=== PATIENT | female | born 1970 | race Caucasian/White ===

== ENCOUNTER → 2020-01-20 09:58 | Outpatient (CLI) | payer MEDICAID, SELFPAY ==
[2018-11-27 09:50] VITALS: BMI 25.9
--- NOTE | 2020-01-20 10:05 | EKG12_ITS ---
Test Reason : ROUTINE Blood Pressure : / mmHG Vent. Rate : 062 BPM Atrial Rate : 062 BPM P-R Int : 124 ms QRS Dur : 078 ms QT Int : 404 ms P-R-T Axes : 012 033 028 degrees QTc Int : 410 ms Normal sinus rhythm Low voltage QRS Borderline ECG Confirmed by MICAH SCOTT, RANDI ([id number]), editorial writer JOHNNY BROUSSARD ([id number]) on 01/21/2020 11:15:35 AM Referred By: Gail Weller Confirmed By:RANDI OBRIEN MD
--- NOTE | 2020-01-20 10:11 | RAD_ITS ---
STUDY: X-RAY CHEST REASON FOR EXAM: Female, 49 years old. SOB especially with exertion, mid chest discomfort, family hx of CHF and heart attacks TECHNIQUE: Frontal and lateral views of the chest. COMPARISON: None. FINDINGS: The lungs are clear and expanded. There is no demonstrated pleural abnormality. Normal size heart. Normal mediastinum and andreia. Normal visualized pulmonary arteries. Normal visualized aortic arch and descending thoracic aorta. Normal visualized thoracic spine. Normal visualized ribs, clavicles, and shoulders. There is no demonstrated abnormality of the visualized soft tissue structures of the upper abdomen. RAD/Chest PA and Lateral IMPRESSION: Normal x-ray examination of the chest. Electronically Signed: Myles Conn MD at 17:52 EDT Tel , Service support ,
== END ==
PROVIDERS: PCP Nurse Practitioner Family; Referring Provider Nurse Practitioner Family; Visit Provider Nurse Practitioner Family
DX: R07.89 Other chest pain (principal); R06.02 Shortness of breath
CPT/HCPCS: 71046; 93005

== ENCOUNTER → 2020-02-19 13:03 | Outpatient (CLI) | payer MEDICAID, SELFPAY ==
[2018-11-27 09:50] VITALS: BMI 25.9
--- NOTE | 2020-02-19 14:16 | PN_ITS ---
Progress Note Patient was here for a stress echo. She felt that because of having leg issues she would not be able to walk on the treadmill to get her heart rate up. Also, she had poor echocardiographic windows. For these reasons a Lexiscan nuclear stress test would be a better option to evaluate for myocardial ischemia then a stress echo in this patient.
== END ==
PROVIDERS: PCP Nurse Practitioner Family; Visit Provider Nurse Practitioner Family
DX: R07.89 Other chest pain (principal); R06.02 Shortness of breath; R01.1 Cardiac murmur, unspecified

== ENCOUNTER → 2020-03-05 09:44 | Outpatient (CLI) | payer MEDICAID, SELFPAY ==
[2020-03-05 09:02] VITALS: BMI 27.6
[2020-03-05 10:29] LABS: Absolute Lymphocyte Count 1.74 X10^3/uL (0.83-4.51); Absolute Neutrophil Count 5.6 X10^3/uL (2.0-7.7); Basophil# 0.02 X10^3/uL; Basophil% 0.3 % (0-1); Eosinophil# 0.02 X10^3/uL; Eosinophils% 0.3 % (0-5); Hematocrit 44.2 % (37-47); Hemoglobin 14.3 g/dL (12.0-15.0); Lymphocyte # 1.74 X10^3/ul (4.0); Lymphocyte % 22.1 % (19-41); Mean Corp Hgb Conc 32.4 g/dL (32-36); Mean Corpuscular Hgb 30.2 pg (27.0-32.0); Mean Corpuscular Volume 93.2 fL (81-99); Mean Platelet Vol. 10.4 fl (6.2-12.0); Monocyte# 0.46 X10^3/uL; Monocyte% 5.8 % (0-10); NRBC Flagged by Analyzer 0 % (0-5); Neutrophil # 5.63 X10^3/uL (2.7-7.7); Neutrophil % 71.2 % (47-70); Platelet Count 269 K/mm3 (150-450); RBC Distribution Width CV 12.7 % (11.6-14.6); RBC Distribution Width SD 43.9 fl (35.1-43.9); Red Blood Count 4.74 M/mm3 (4.2-5.4); White Blood Count 7.9 K/mm3 (4.4-11.0)
[2020-03-05 10:52] LABS: BNP,B-Type NATRIURETIC PEPTIDE 13.8 pg/mL (0-100)
[2020-03-05 10:56] LABS: Anion Gap 7 (5-15); BUN 12 mg/dL (7-18); BUN/Creat Ratio 15.8 RATIO (10-20); Calcium,Total 8.9 mg/dL (8.5-10.1); Chloride 106 mmol/L (98-107); Creatinine, Serum 0.76 mg/dL (0.55-1.02); EST Glomerular Filtration Rate 87 mL/min (>60); Est Glom Filt Rate - Afr Amer 105 mL/min (>60); Free T3 3.3 pg/mL (2.18-3.98); Glucose 89 mg/dL (74-106); Magnesium 2.2 mg/dL (1.6-2.6); Potassium 3.9 mmol/L (3.5-5.1); Sodium Level 138 mmol/L (136-145); T4 Free Direct 1.19 ng/dL (0.76-1.46); Thyroid Stim Hormone (TSH) 2.25 uIU/mL (0.358-3.74)
== END ==
PROVIDERS: PCP Nurse Practitioner Family; Referring Provider Physician Assistant Medical; Visit Provider Physician Assistant Medical
DX: R07.9 Chest pain, unspecified (principal); R06.02 Shortness of breath; R00.2 Palpitations; I73.9 Peripheral vascular disease, unspecified
CPT/HCPCS: 36415; 80048; 83735; 83880; 84439; 84443; 84481; 85025

== ENCOUNTER 2021-05-24 07:58 | Outpatient (CLI) | payer MEDICAID, SELFPAY ==
--- NOTE | 2021-05-24 08:00 | CT_ITS ---
STUDY: CT MAXILLOFACIAL SINUSES REASON FOR EXAM: Female, 50 years old. SINUSITIS RADIATION DOSAGE (If Supplied By Facility): CTDIvol = ( 33.06 ) mGy, DLP = ( 871.04 ) mGycm TECHNIQUE: The patient was scanned in a multi detector CT scanner. High resolution axial imaging was performed without the administration of intravenous contrast material. Sagittal and coronal images were reconstructed. Individualized dose optimization techniques were used for this CT. COMPARISON: None. FINDINGS: Small benign appearing submental lymph nodes. FRONTAL SINUSES: Normal aeration, without mucosal inflammatory disease. ETHMOIDAL SINUSES: Normal aeration, without mucosal inflammatory disease. MAXILLARY SINUSES: Minimal mucosal thickening along the lateral inferior aspect of the right maxillary sinus. SPHENOIDAL SINUSES: Normal aeration, without mucosal inflammatory disease. There is patency of the bilateral maxillary infundibuli with normal uncinate processes, ethmoid bullae, and hiatus semilunaris. Normal bilateral middle turbinates. Normal bilateral inferior turbinates. Normal midline nasal septum. There is patency of the bilateral nasal airways. The visualized osseous structures are normal. The visualized bilateral orbital contents are normal. CT/Sinus/Facial Bone IMPRESSION: Minimal mucosal thickening along the lateral inferior aspect of the right maxillary sinus. Electronically Signed: Jamie Bob MD at 9:45 EST , Service support ,
== END 2021-05-24 23:59 | disposition short-term general hospital (02) ==
LOC: CT 07:58
PROVIDERS: PCP Nurse Practitioner Family; Referring Provider Otolaryngology; Visit Provider Otolaryngology
DX: J32.9 Chronic sinusitis, unspecified (principal)
CPT/HCPCS: 70486

== ENCOUNTER 2022-01-02 11:13 | Day surgery (SDC) | payer MEDICAID, SELFPAY ==
--- NOTE | 2021-12-28 09:24 | EKG12_ITS ---
Test Reason : PRE OP Blood Pressure : / mmHG Vent. Rate : 072 BPM Atrial Rate : 072 BPM P-R Int : 138 ms QRS Dur : 078 ms QT Int : 400 ms P-R-T Axes : 059 029 040 degrees QTc Int : 438 ms Normal sinus rhythm with sinus arrhythmia Low voltage QRS Borderline ECG Confirmed by MICAH SCOTT, RANDI ([id number]), brands editor JOHNNY BROUSSARD ([id number]) on 12/29/2021 9:50:51 AM Referred By: Diaz Chang Confirmed By:RANDI OBRIEN MD
[2021-12-28 10:05] LABS: Hematocrit 42.7 % (37-47); Hemoglobin 14.3 g/dL (12.0-15.0); Mean Corp Hgb Conc 33.5 g/dL (32-36); Mean Corpuscular Hgb 30.8 pg (27.0-32.0); Mean Platelet Vol. 10.4 fl (6.2-12.0); Platelet Count 239 K/mm3 (150-450); RBC Distribution Width SD 43.7 fl (35.1-43.9); Red Blood Count 4.64 M/mm3 (4.2-5.4); White Blood Count 5.9 K/mm3 (4.4-11.0)
[2021-12-28 10:45] LABS: Anion Gap 5 (5-15); BUN 20 mg/dL (7-18); BUN/Creat Ratio 23.7 RATIO (10-20); Calcium,Total 9.4 mg/dL (8.5-10.1); Chloride 107 mmol/L (98-107); Creatinine, Serum 0.84 mg/dL (0.55-1.02); EST Glomerular Filtration Rate 76 mL/min (>60); Est Glom Filt Rate - Afr Amer 92 mL/min (>60); Glucose 102 mg/dL (74-106); Potassium 3.9 mmol/L (3.5-5.1); Sodium Level 139 mmol/L (136-145)
[2022-01-02] VITALS (10 sets, daily range): BP systolic 91–115; BP diastolic 40–68; PULSE 78–108; RESP 14–18; TEMP 36.2–36.5; O2SAT 90–100; BMI 27.6
[2022-01-02] MEDS: Lactated Ringers 1,000 ML 15 ML IV (12:24)
[2022-01-02] MEDS: Cefazolin 2 GM in 0.9% Normal Saline 100 ML IV (13:40)
[2022-01-02] MEDS: Lidocaine 1% /Epi 1:100 (20ml) 20 ML Vial ×2 (13:50→14:27)
[2022-01-02] MEDS: Epinephrine (1 mg/ml) 1 MG/ML VIAL (13:50)
--- NOTE | 2022-01-02 14:47 | OP.PCM_ITS ---
Report of Operation Date of Procedure: 01/02/22 Pre-Operative Diagnosis: Subacromial impingement syndrome, AC joint arthrosis. Type 2 SLAP lesion and possible rotator cuff tear right shoulder Post-Operative Diagnosis: SAIS,AC arthritis, labral inflammation without instability, no rotator cuff tear Surgery/Procedure Performed:: ASD, Van procedure, intra-articular debridement, arthroscopic inspection of rotator cuff both intra-articular and subacromial Surgeon: Diaz Chang management aide: Prince Mendosa Type of Anesthesia: General Anesthesiologist: rBaulio Crane VTE Documentation VTE Present on Admission: No VTE Mechan Device Prophylaxis: SCD's and Thigh High BARRY Hose VTE Pharm Prophylaxis ordered?: No Reason prophylaxis not ordered:: Treatment Not Indicated
[2022-01-02] MEDS: 0.9% Normal Saline 1,000 ML 125 ML IV (15:19)
== END 2022-01-02 17:19 | disposition home or self-care (01) ==
LOC: SDC 11:13 → AC 11:15
PROVIDERS: PCP Nurse Practitioner Family; Referring Provider Orthopaedic Surgery; Visit Provider Orthopaedic Surgery
PROC: (CPT 29827; principal; 2022-01-02 12:25)
DX: M75.41 Impingement syndrome of right shoulder (principal); M19.011 Primary osteoarthritis, right shoulder; S43.431A Superior glenoid labrum lesion of right shoulder, initial encounter; X58.XXXA Exposure to other specified factors, initial encounter; E78.00 Pure hypercholesterolemia, unspecified; E66.3 Overweight; Z68.27 Body mass index [BMI] 27.0-27.9, adult; Z71.3 Dietary counseling and surveillance; Z79.899 Other long term (current) drug therapy; Z86.16 Personal history of COVID-19
CPT/HCPCS: 29824; 29826; 01630; 36415; 80048; 85027; 93005; J7030; J7120; J2405

== ENCOUNTER → 2022-02-22 | Outpatient (CLI) | payer MEDICAID, SELFPAY ==
[2022-02-22 09:23] LABS: Absolute Lymphocyte Count 2.04 X10^3/uL (0.83-4.51); Absolute Neutrophil Count 4.3 X10^3/uL (2.0-7.7); Basophil# 0.04 X10^3/uL; Basophil% 0.6 % (0-1); Eosinophil# 0.04 X10^3/uL; Eosinophils% 0.6 % (0-5); Hematocrit 42.9 % (37-47); Hemoglobin 14.1 g/dL (12.0-15.0); Lymphocyte # 2.04 X10^3/ul (0.83-4.51); Lymphocyte % 29.4 % (19-41); Mean Corp Hgb Conc 32.9 g/dL (32-36); Mean Corpuscular Hgb 30.1 pg (27.0-32.0); Mean Corpuscular Volume 91.5 fL (81-99); Mean Platelet Vol. 9.9 fl (6.2-12.0); Monocyte% 7.2 % (0-10); NRBC Flagged by Analyzer 0 % (0-5); Neutrophil # 4.29 X10^3/uL (2.7-7.7); Neutrophil % 61.9 % (47-70); Platelet Count 260 K/mm3 (150-450); RBC Distribution Width CV 13.2 % (11.6-14.6); RBC Distribution Width SD 43.9 fl (35.1-43.9); Red Blood Count 4.69 M/mm3 (4.2-5.4); White Blood Count 6.9 K/mm3 (4.4-11.0)
[2022-02-22 09:59] LABS: AST(SGOT) 20 U/L (15-37); Alanine Aminotransfer ALT/SGPT 39 U/L (13-56); Albumin, Serum 3.9 g/dL (3.2-5.0); Alkaline Phosphatase 104 U/L (45-117); Anion Gap 3 (5-15); BUN 14 mg/dL (7-18); BUN/Creat Ratio 19.6 RATIO (10-20); Bilirubin, Direct 0.13 mg/dL (0.00-0.30); Calcium,Total 9.4 mg/dL (8.5-10.1); Chloride 108 mmol/L (98-107); Cholesterol 284 mg/dL (200); Creatinine, Serum 0.71 mg/dL (0.55-1.02); EST Glomerular Filtration Rate 92 mL/min (>60); Est Glom Filt Rate - Afr Amer 112 mL/min (>60); Globulin 3.6 g/dL (2.2-4.2); Glucose 91 mg/dL (74-106); High Density Lipoprotein 60 mg/dL; Magnesium 2.3 mg/dL (1.6-2.6); Potassium 4.1 mmol/L (3.5-5.1); Protein, Total 7.5 g/dL (6.4-8.2); Sodium Level 141 mmol/L (136-145); Thyroid Stim Hormone (TSH) 2.91 uIU/mL (0.358-3.74); Triglycerides 125 mg/dL; Very Low Density Lipoprotein 25 mg/dL (5-40)
== END | disposition home or self-care (01) ==
PROVIDERS: PCP Nurse Practitioner Family; Referring Provider Nurse Practitioner Family; Visit Provider Nurse Practitioner Family
DX: R00.2 Palpitations (principal); R07.9 Chest pain, unspecified; E78.00 Pure hypercholesterolemia, unspecified
CPT/HCPCS: 36415; 80048; 80061; 80076; 83735; 84443; 85025

== ENCOUNTER → 2022-07-18 | Outpatient (CLI) | payer MEDICAID, SELFPAY ==
[2022-07-18 10:08] LABS: Hematocrit 43.4 % (37-47); Mean Corp Hgb Conc 32.3 g/dL (32-36); Mean Corpuscular Hgb 29.5 pg (27.0-32.0); Mean Corpuscular Volume 91.6 fL (81-99); Mean Platelet Vol. 10.4 fl (6.2-12.0); Platelet Count 253 K/mm3 (150-450); RBC Distribution Width CV 13.1 % (11.6-14.6); Red Blood Count 4.74 M/mm3 (4.2-5.4); White Blood Count 6.3 K/mm3 (4.4-11.0)
--- NOTE | 2022-07-18 10:12 | RAD_ITS ---
STUDY: X-RAY - LEFT SHOULDER REASON FOR EXAM: Female, 51 years old. Shoulder pain with decreased range of motion. TECHNIQUE: 5 view(s) of the shoulder. COMPARISON: None. FINDINGS: Normal glenohumeral articulation. Mild arthrosis of the AC joint. Normal acromion. Normal humeral head and visualized proximal humerus. The soft tissue structures are unremarkable. Normal visualized pulmonary apex. RAD/Shoulder min 2 Views IMPRESSION: Mild arthrosis of the AC joint. No other abnormality. Electronically Signed: Prince Read, at 15:41 EDT ,
[2022-07-18 10:38] LABS: Vitamin D,25 Hydroxy 26.5 ng/mL
[2022-07-18 10:48] LABS: AST(SGOT) 13 U/L (15-37); Alanine Aminotransfer ALT/SGPT 22 U/L (13-56); Albumin, Serum 3.8 g/dL (3.2-5.0); Alkaline Phosphatase 97 U/L (45-117); Anion Gap 6 (5-15); BUN 18 mg/dL (7-18); BUN/Creat Ratio 24.2 RATIO (10-20); Calcium,Total 9.3 mg/dL (8.5-10.1); Chloride 105 mmol/L (98-107); Cholesterol 249 mg/dL (200); Creatinine, Serum 0.74 mg/dL (0.55-1.02); EST Glomerular Filtration Rate 88 mL/min (>60); Est Glom Filt Rate - Afr Amer 106 mL/min (>60); Globulin 3.7 g/dL (2.2-4.2); Glucose 85 mg/dL (74-106); High Density Lipoprotein 55 mg/dL; Potassium 4.4 mmol/L (3.5-5.1); Protein, Total 7.5 g/dL (6.4-8.2); Sodium Level 137 mmol/L (136-145); Triglycerides 83 mg/dL; Very Low Density Lipoprotein 17 mg/dL (5-40)
== END | disposition home or self-care (01) ==
PROVIDERS: PCP Nurse Practitioner Family; Referring Provider Nurse Practitioner Family; Visit Provider Nurse Practitioner Family
DX: Z00.00 Encounter for general adult medical examination without abnormal findings (principal); M25.512 Pain in left shoulder; M25.612 Stiffness of left shoulder, not elsewhere classified; K21.9 Gastro-esophageal reflux disease without esophagitis; E55.9 Vitamin D deficiency, unspecified; E78.5 Hyperlipidemia, unspecified; Z13.0 Encounter for screening for diseases of the blood and blood-forming organs and certain disorders involving the immune mechanism
CPT/HCPCS: 36415; 73030; 80053; 80061; 82306; 85027

== ENCOUNTER 2022-08-21 07:35 | Observation (INO) | payer MEDICAID, SELFPAY ==
[2022-08-21 07:36] VITALS: BP 132/94; PULSE 80; RESP 14; TEMP 36.4; O2SAT 100; BMI 25.7
--- NOTE | 2022-08-21 07:46 | CT_ITS ---
STUDY: CT ABDOMEN AND PELVIS WITHOUT CONTRAST REASON FOR EXAM: Female, 51 years old. Right flank pain. Nausea and vomiting. RADIATION DOSAGE (If Supplied By Facility): CTDIvol = ( 11.01 ) mGy, DLP = ( 517.24 ) mGycm TECHNIQUE: Transaxial images were obtained from the dome of the diaphragm to the symphysis pubis without oral contrast, and without intravenous contrast. Sagittal and coronal images were reconstructed. Individualized dose optimization techniques were used for this CT. COMPARISON: None. FINDINGS: A left-sided rest implant is seen. The visualized lung bases are unremarkable. The visualized portions of the heart are within normal limits. There is a 1.1 cm cyst in the medial aspect of the left lobe of the liver superiorly. The patient is status post cholecystectomy. Normal spleen. Normal pancreas. Normal bilateral adrenal glands. Engorgement of the right kidney. Moderate degree of the right hydronephrosis and right hydroureter due to a 5.1 mm calculus in the distal portion of the right ureter. There is also evidence of a 4.3 mm calculus in the distal portion of the right ureter just proximal to the right ureterovesical junction. Normal left kidney. 3 mm rounded calcification in the left gonadal vein. Normal visualized stomach. Normal small intestine. There are scattered colonic diverticula consistent with diverticulosis. The appendix is visualized and appears normal. There is scattered atherosclerotic calcification of the abdominal aorta, without a demonstrated aneurysm. Normal inferior vena cava. Normal retroperitoneum. Normal urinary bladder. There is absence of the uterus consistent with a prior hysterectomy. Normal abdominal wall. The patient is status post laminectomy and fusion at the L4-L5 level with prosthetic disc placement. CT/Abdomen/Pelvis without Cont IMPRESSION: 5.1 mm calculus in the distal portion of the right ureter causing right hydronephrosis and hydroureter. There is also evidence of a 4.3 mm calculus in the distal portion of the right ureter just proximal to the right ureterovesical junction. Electronically Signed: Jamie Bob MD at 8:39 EDT ,
--- NOTE | 2022-08-21 07:47 | EDS_ITS ---
HPI HPI - GI History of Present Illness Chief Complaint: Flank Pain Narrative Narrative: 51-year-old female past surgical history of appendectomy, total hysterectomy, has also had obstructing kidney stone for which stent placement was needed 6 years ago, presents with right flank pain that began mildly yesterday. This morning at 5 AM, over 2-1/2 hours ago, she awoke with pain that she thought would go away, but has continued to worsen. It is in the right flank and comes around towards the front. It feels very similar to her previous ureterolithiasis. She denies any fevers or chills but had nausea and vomiting 6 times today without any blood in her emesis. She states with her last kidney stone she never got sick. She denies any dysuria or hematuria, no exacerbating or alleviating factors. She took tramadol without relief. She presents because of continued pain in her right flank. [facility] Medical History Alcohol use Anxiety Arthritis Cardiology follow-up encounter Chest pain History of steroid therapy Non-smoker Palpitations PONV (postoperative nausea and vomiting) Shortness of breath on exertion Wears glasses Home Medications meloxicam 15 mg tablet 15 mg PO QHS 12/26/21 [History Last Taken 01/01/22] acetaminophen 325 mg tablet 325 mg PO ONCE PRN Pain, Mild 12/30/21 [History Last Taken Unknown] atorvastatin 20 mg tablet 40 mg PO QHS 02/23/22 [History Last Taken Unknown] Allergy/AdvReac Type Severity Reaction Status Date / Time No Known Allergies Allergy Verified 08/21/22 07:38 Family History Mother Cancer Heart disease Hypertension Father Cancer Diabetes Heart disease Hypertension Surgical History History of appendectomy History of back surgery History of section History of cholecystectomy History of hysterectomy History of tonsillectomy Social History Smoking Status: Never smoker alcohol intake: current alcohol intake frequency: a few times a week substance use type: does not use caffeine: Yes Type: coffee Number of servings: 1 ROS ROS ED ROS Narrative Constitutional: No fever, no chills. HEENT: No sore throat. No neck pain. No loss of vision. No rhinorrhea. Cardiovascular: No chest pain. No palpitations. No pedal edema. Respiratory: No cough, no shortness of breath. Abdominal: No abdominal pain. Positive nausea and vomiting x6 today, no hematemesis. Genitourinary: No dysuria. No hematuria. Positive right flank pain radiating towards front. Musculoskeletal: No myalgias. No arthralgias. Neurologic: No headaches. No dizziness. No lightheadedness. Skin: No rash. No change in color. Psychiatric: No depression. No anxiety. EXAM Physical Exam Narrative Exam Narrative: Afebrile. Vital signs noted. HEENT: Normocephalic. Atraumatic. PERRL, EOMI. Neck soft and supple. No point tenderness or step off. Cardiovascular: Regular rate and rhythm. No murmurs, rubs, or gallops appreciated. Respiratory: No tachypnea. Lungs clear to auscultation bilaterally. Gastrointestinal: Abdomen soft, nontender, with normoactive bowel sounds. No rebound or guarding. No CVA tenderness to percussion. Neurological: Awake. Alert. Nonfocal, nonlateralizing. Seen ambulating back to room from bathroom independently. Skin: No rash. Normal color. No pallor. Musculoskeletal: No pedal edema. Full range of motion extremities. Const Vital Signs: 08/21/22 07:36 08/21/22 09:21 Temperature 97.5 F L Temperature Source Temporal Pulse Rate 80 98 Respiratory Rate 14 16 Blood Pressure 132/94 H 126/86 H Blood Pressure Mean 106 99 Pulse Ox 100 98 Oxygen Delivery Method Room Air Room Air [facility] Narrative Medical decision making narrative: Hi the differential diagnosis is ureterolithiasis. Lower on the differential is a colitis, this is less likely because she is not having any bowel movement problems. She states that she does not do well with stronger pain medications. As she has had total hysterectomy, I do feel that she would tolerate Toradol and ondansetron initially. IV fluids will be administered at 250 mL/h. I do feel CT imaging is indicated to look for a larger stone that is causing obstruction as she has had problems with large ureterolithiasis in the past. I will also obtain a CBC and BMP along with urinalysis to make sure that she does not have a pyelonephritis that is causing her pain. I reviewed the patient's laboratory work and she does have mildly elevated leukocytosis of 11.8, hemoglobin normal at 14.5, hematocrit 43.9, platelet count normal at 242. I reviewed her CMP to look for signs of acute kidney injury, her BUN is 22 she has a normal creatinine of 0.98. Urinalysis shows negative ketones, negative nitrites but she does have 1+ bacteria with 10-25 WBCs and 10- 25 RBCs. This was sent for culture I reviewed her CT imaging and on my interpretation she does have hydronephrosis and what appears to be 2 ureteral stones on the right. I reviewed the radiology report which measures the stones in the distal ureter at 5.1 mm and an additional at 4.3 mm. She was started on Rocephin. Upon repeat examination after Toradol, she is resting comfortably and states that she has mild relief. Upon further history taking, she states that 6 years ago she had to have a stent placed and a few days later they went for basket retrieval of her 5 to 6 mm stone(s). Additionally, she states that she started to become septic. However, currently she is not showing any signs of SIRS criteria with a normal pulse of 80, no evidence of hypotension, and being afebrile here. Her white count is only 11.8. However, given that her stones to manjinder measurement of 9.4 mm, patient was discussed with Dr. Harvey with urology. Initially, outpatient follow-up was recommended. However, patient began having increasing pain and was administered morphine and Zofran. Her pain became intractable and uncontrollable. Hence, will be discussed with Dr. Harvey with urology again for admission. She will remain n.p.o. Patient is in stable condition. History & Record Review Discussion w/independent historian: Patient Additional record(s) reviewed:: Prior outpatient record, Prior ED visit and Prior labs Lab Data Attestation: I reviewed the patient's lab results. Labs: Laboratory Results - last 24 hr 08/21/22 08/21/22 08/21/22 07:50 07:53 07:53 WBC 11.8 H RBC 4.81 Hgb 14.5 Hct 43.9 MCV 91.3 MCH 30.1 MCHC 33.0 RDW Std Deviation 46.5 H RDW Coeff of Raymond 13.8 Plt Count 242 MPV 10.0 Immature Gran % (Auto) 0.500 Neut % (Auto) 81.3 H Lymph % (Auto) 13.5 L [place] % (Auto) 4.3 Eos % (Auto) 0.1 Baso % (Auto) 0.3 Absolute Neuts (auto) 9.6 H Absolute Lymphs (auto) 1.59 Nucleated RBC % 0 Sodium 137 Potassium 3.6 Chloride 109 H Carbon Dioxide 24.0 Anion Gap 4 L BUN 22 H Creatinine 0.98 Estim Creat Clear Calc 62.49 Est GFR (MDRD) Af Amer 78 Est GFR (MDRD) Non-Af 64 BUN/Creatinine Ratio 22.5 H Glucose 115 H Calcium 9.2 Urine Color Yellow Urine Clarity Sl. Cloudy Urine pH 5.0 Ur Specific [place] 1.025 Urine Protein 30 H Urine Glucose (UA) Normal Urine Ketones Negative Urine Occult Blood 150 H Urine Nitrite Negative Urine Bilirubin Negative Urine Urobilinogen Normal Ur Leukocyte Esterase 100 H Urine RBC 10-25 SEEN Urine WBC 10-25 SEEN Ur Squamous Epith Cells 0-5 SEEN Urine Bacteria 1+ Urine Mucus 0 SEEN Radiography Diagnostic Testing: Clinical Impression(s) from Imaging Studies Abdomen/Pelvis CT 08/21/22 07:46 IMPRESSION: 5.1 mm calculus in the distal portion of the right ureter causing right hydronephrosis and hydroureter. There is also evidence of a 4.3 mm calculus in the distal portion of the right ureter just proximal to the right ureterovesical junction. Electronically Signed: Jamie Bob MD at 8:39 EDT , Management Discussion w/another healthcare provider: [facility] (Dr. Sujata Harvey) Discharge Plan Dx/Rx/DC Orders Clinical Impression: Ureteral calculus, right, Intractable pain, Hydronephrosis Disposition Disposition: Acute Care [facility]
[2022-08-21] MEDS: Ketorolac 30 MG/ML Syringe IV (07:54)
[2022-08-21] MEDS: Ondansetron 4 MG/2 ML Vial IV ×3 (07:55→11:22)
[2022-08-21] MEDS: 0.9% Normal Saline 1,000 ML 250 ML IV ×3 (07:55→12:55)
[2022-08-21 08:03] LABS: Mucous, Urine 0 SEEN /hpf (<or=2+)
[2022-08-21 08:04] LABS: Absolute Lymphocyte Count 1.59 X10^3/uL (0.83-4.51); Absolute Neutrophil Count 9.6 X10^3/uL (2.0-7.7); Basophil# 0.04 X10^3/uL; Basophil% 0.3 % (0-1); Eosinophil# 0.01 X10^3/uL; Eosinophils% 0.1 % (0-5); Hematocrit 43.9 % (37-47); Hemoglobin 14.5 g/dL (12.0-15.0); Lymphocyte # 1.59 X10^3/ul (0.83-4.51); Lymphocyte % 13.5 % (19-41); Mean Corpuscular Hgb 30.1 pg (27.0-32.0); Mean Corpuscular Volume 91.3 fL (81-99); Monocyte# 0.51 X10^3/uL; Monocyte% 4.3 % (0-10); NRBC Flagged by Analyzer 0 % (0-5); Neutrophil # 9.59 X10^3/uL (2.7-7.7); Neutrophil % 81.3 % (47-70); Platelet Count 242 K/mm3 (150-450); RBC Distribution Width CV 13.8 % (11.6-14.6); RBC Distribution Width SD 46.5 fl (35.1-43.9); Red Blood Count 4.81 M/mm3 (4.2-5.4); White Blood Count 11.8 K/mm3 (4.4-11.0)
[2022-08-21 08:07] LABS: Color, Urine Yellow (Yellow); Glucose, Dipstick Normal (Normal); Ketone-Dipstick Negative (Negative); Leukocyte Esterase-Dipstick 100 /ul (Negative); Nitrite-Dipstick Negative (Negative); Occult Blood-Urine 150 /ul (Negative); Protein-Dipstick 30 mg/dl (Negative); Specific Gravity, Urine 1.025 (1.002-1.030); Urine Bilirubin Dipstick Negative (Negative); Urine Clarity Sl. Cloudy (Clear); Urine Urobilinogen Normal (Normal)
[2022-08-21 08:13] LABS: Bacteria 1+ /hpf (None Seen); Red Blood Cells-Urine 10-25 SEEN /hpf (0-5); Squamous Epithelial Cells - UA 0-5 SEEN /hpf (5-10); White Blood Cells 10-25 SEEN /hpf (0-5)
[2022-08-21 08:17] LABS: Anion Gap 4 (5-15); BUN 22 mg/dL (7-18); BUN/Creat Ratio 22.5 RATIO (10-20); Calcium,Total 9.2 mg/dL (8.5-10.1); Chloride 109 mmol/L (98-107); Creatinine, Serum 0.98 mg/dL (0.55-1.02); EST Glomerular Filtration Rate 64 mL/min (>60); Est Glom Filt Rate - Afr Amer 78 mL/min (>60); Estimated Creatinine Clearance 62.49 ml/min; Glucose 115 mg/dL (74-106); Potassium 3.6 mmol/L (3.5-5.1); Sodium Level 137 mmol/L (136-145)
[2022-08-21] MEDS: Ceftriaxone 1 GM/50 ML BAG IV (09:07)
[2022-08-21] MEDS: Morphine 4 MG/ML Syringe IV ×2 (09:13→11:59)
[2022-08-21 09:21] VITALS: BP 126/86; PULSE 98; RESP 16; O2SAT 98
[2022-08-21 11:12] VITALS: BP 126/86; PULSE 98; RESP 16; TEMP 36.7; O2SAT 98
--- NOTE | 2022-08-21 11:18 | NURSING ---
MED SURG KATI URETERAL STONES, INTRACTABLE PAIN
[2022-08-21] MEDS: Famotidine 200 MG/20 ML MDV 20 MG in 0.9% Normal Saline (Pres. free 8 ML 300 MG IV (11:33)
[2022-08-21 12:24] VITALS: BMI 26.6
[2022-08-21 12:42] VITALS: BP 114/78; PULSE 60; RESP 16; TEMP 36.6; O2SAT 95
[2022-08-21] MEDS: Dextrose 5%-Lactated Ringers 1,000 ML 100 ML IV ×2 (13:36→21:55)
[2022-08-21 15:05] VITALS: BP 117/79; PULSE 51; RESP 16; TEMP 36.6; O2SAT 100
--- NOTE | 2022-08-21 18:03 | PCM.HP.STD ---
[facility] - General General Date of Admission: 08/21/22 Date of Service: 08/21/22 Chief Complaint: flank pain HPI Narrative ABBI NORRIS, is a 51 F who presents with an obstructing right ureteral calculus with uncontrolled pain and nausea. This is her third ureteral calculus and she has had surgical intervention in the past. She developed gross hematuria with a negative urine culture approximately 2 weeks ago and was in the process of obtaining a CT scan ordered by her primary care physician. She was awaiting insurance approval when she awoke this morning in severe right sided abdominal and flank pain with nausea and presented to the emergency room for evaluation and management. She has not had any fevers with this episode. She has her dinner plate at bedside and has eaten the majority of a baked potato. [facility] Medical History Alcohol use Anxiety Arthritis Cardiology follow-up encounter Chest pain History of steroid therapy Kidney stones Non-smoker Palpitations PONV (postoperative nausea and vomiting) Shortness of breath on exertion Wears glasses Home Medications meloxicam 15 mg tablet 15 mg PO QHS 12/26/21 [History Last Taken 01/01/22] acetaminophen 325 mg tablet 325 mg PO ONCE PRN Pain, Mild 12/30/21 [History Last Taken Unknown] atorvastatin 20 mg tablet 40 mg PO QHS 02/23/22 [History Last Taken Unknown] Allergy/AdvReac Type Severity Reaction Status Date / Time No Known Allergies Allergy Verified 08/21/22 07:38 Family History Mother Cancer Heart disease Hypertension Father Cancer Diabetes Heart disease Hypertension Surgical History History of appendectomy History of back surgery History of section History of cholecystectomy History of hysterectomy History of tonsillectomy Social History Smoking Status: Never smoker alcohol intake: current alcohol intake frequency: a few times a week substance use type: does not use caffeine: Yes Type: coffee Number of servings: 1 ROS Constitutional Constitutional: Reports poor appetite Eyes Eyes: Reports systems reviewed and no addt'l complaints, except as documented ENT HEENT: Reports systems reviewed and no addt'l complaints, except as documented Cardiovascular Cardiovascular: Reports systems reviewed and no addt'l complaints, except as documented, abdominal pain and nausea Respiratory/Chest Respiratory/Chest: Reports systems reviewed and no addt'l complaints, except as documented Gastrointestinal Gastrointestinal: Reports systems reviewed and no addt'l complaints, except as documented and nausea Genitourinary Genitourinary: Reports systems reviewed and no addt'l complaints, except as documented, abdominal discomfort, flank pain, hematuria and low back pain Musculoskeletal Musculoskeletal: Reports systems reviewed and no addt'l complaints, except as documented Integumentary Integumentary: Reports systems reviewed and no addt'l complaints, except as documented Neurologic Neurologic: Reports systems reviewed and no addt'l complaints, except as documented Psychiatric Psychiatric: Reports systems reviewed and no addt'l complaints, except as documented Endocrine Endocrinology: Reports systems reviewed and no addt'l complaints, except as documented Hematologic/Lymphatic Hematologic/Lymphatic: Reports systems reviewed and no addt'l complaints, except as documented Allergic/Immunologic Allergic/Immunologic: Reports systems reviewed and no addt'l complaints, except as documented Vital Signs Vital Signs Vital Signs: 08/21/22 07:36 08/21/22 09:21 08/21/22 11:12 Temperature 97.5 F L 98.0 F Temperature Source Temporal Temporal Pulse Rate 80 98 98 Respiratory Rate 14 16 16 Respiratory Effort Respiratory Depth Respiratory Pattern Blood Pressure 132/94 H 126/86 H 126/86 H Blood Pressure Mean 106 99 99 Blood Pressure Source Blood Pressure Position Blood Pressure Location Pulse Ox 100 98 98 Oxygen Delivery Method Room Air Room Air Room Air 08/21/22 12:36 08/21/22 12:42 08/21/22 15:05 Temperature 98 F 98 F Temperature Source Oral Oral Pulse Rate 60 51 L Respiratory Rate 16 16 Respiratory Effort Normal Respiratory Depth Normal Respiratory Pattern Normal Blood Pressure 114/78 117/79 Blood Pressure Mean 90 91 Blood Pressure Source Monitor Monitor Blood Pressure Position Sitting Semi-Fowlers Blood Pressure Location Left Arm Left Arm Pulse Ox 95 100 Oxygen Delivery Method Room Air Room Air Room Air Weight Weight: 72.575 kg Body Mass Index (BMI) 26.6 Physical Exam Const alert, oriented x3 and healthy appearing General Appearance: cooperative HEENT normocephalic and head/scalp atraumatic Eyes General Eye: normal appearance of both eyes Neck supple General: normal visual inspection and trachea midline Chest inspection of chest normal Resp normal respiratory effort, normal air movement, no retractions and no use of accessory muscles Cardio regular rate GI soft to palpation Bladder / Kidney Exam: CVA tenderness right Skin no rashes or lesions noted Neuro oriented x3 and CN's II-XII intact bilaterally Psych mental status grossly normal Results Lab / Micro Data Result Diagrams: 08/21/22 07:53 08/21/22 07:53 Labs: Laboratory Results - last 24 hr 08/21/22 07:50: Urine Color Yellow, Urine Clarity Sl. Cloudy, Urine pH 5.0, Ur Specific [place] 1.025, Urine Protein 30 H, Urine Glucose (UA) Normal, Urine Ketones Negative, Urine Occult Blood 150 H, Urine Nitrite Negative, Urine Bilirubin Negative, Urine Urobilinogen Normal, Ur Leukocyte Esterase 100 H, Urine RBC 10-25 SEEN, Urine WBC 10-25 SEEN, Ur Squamous Epith Cells 0-5 SEEN, Urine Bacteria 1+, Urine Mucus 0 SEEN 08/21/22 07:53: WBC 11.8 H, RBC 4.81, Hgb 14.5, Hct 43.9, MCV 91.3, MCH 30.1, MCHC 33.0, RDW Std Deviation 46.5 H, RDW Coeff of Raymond 13.8, Plt Count 242, MPV 10.0, Immature Gran % (Auto) 0.500, Neut % (Auto) 81.3 H, Lymph % (Auto) 13.5 L, [place] % (Auto) 4.3, Eos % (Auto) 0.1, Baso % (Auto) 0.3, Absolute Neuts (auto) 9.6 H, Absolute Lymphs (auto) 1.59, Nucleated RBC % 0 08/21/22 07:53: Sodium 137, Potassium 3.6, Chloride 109 H, Carbon Dioxide 24.0, Anion Gap 4 L, BUN 22 H, Creatinine 0.98, Estim Creat Clear Calc 62.49, Est GFR (MDRD) Af Amer 78, Est GFR (MDRD) Non-Af 64, BUN/Creatinine Ratio 22.5 H, Glucose 115 H, Calcium 9.2 Radiology Impression Abdomen/Pelvis CT 08/21/22 07:46 IMPRESSION: 5.1 mm calculus in the distal portion of the right ureter causing right hydronephrosis and hydroureter. There is also evidence of a 4.3 mm calculus in the distal portion of the right ureter just proximal to the right ureterovesical junction. Electronically Signed: Jamie Bob MD at 8:39 EDT , Assessment & Plan Assessment/Plan (1) Ureteral calculus, right: PLAN: N.p.o. after midnight tonight Surgical intervention planned for 5 PM tomorrow with cystoscopy, ureteroscopy, holmium laser lithotripsy and right ureteral stent insertion Continue supportive care with pain and nausea control Will need outpatient follow-up for 24-hour urinalysis etc. (2) Intractable pain: (3) Hydronephrosis:
[2022-08-21 21:49] VITALS: BP 116/71; PULSE 60; RESP 16; TEMP 36.3; O2SAT 98
[2022-08-22] VITALS (12 sets, daily range): BP systolic 102–139; BP diastolic 66–97; PULSE 67–100; RESP 16–18; TEMP 36.6–36.9; O2SAT 96–99; BMI 26.6
[2022-08-22] MEDS: Cefazolin 1 GM/50 ML BAG IV ×2 (05:37→13:54)
[2022-08-22] MEDS: Acetaminophen 325 MG Tablet 650 MG PO ×2 (08:16→13:54)
[2022-08-22] MEDS: Dextrose 5%-Lactated Ringers 1,000 ML 100 ML IV (08:16)
--- NOTE | 2022-08-22 15:03 | NURSING ---
pt crying and upset, stated she can not fucking take it amymore. this headache is killing me. if it was not for surgery i would fucking walk out of here. offered toradol to pt and pt declined stated that she is worried it will upset her stomach.
--- NOTE | 2022-08-22 15:50 | NURSING ---
pt to surgery
[2022-08-22] MEDS: Lactated Ringers 1,000 ML 15 ML IV (15:55)
--- NOTE | 2022-08-22 16:21 | PCM.OPRPT ---
Report of Operation Date of Procedure: 08/22/22 Pre-Operative Diagnosis: Right ureteral calculus Post-Operative Diagnosis: Same Surgery/Procedure Performed:: Cystoscopy, right ureteroscopy, right retrograde pyelogram, holmium laser lithotripsy, stone basket extraction, right ureteral stent insertion Surgeon: Sujata Harvey Type of Anesthesia: General Specimen's removed: Stone fragments Description of Procedure: The patient is a 51-year-old female who was admitted yesterday with uncontrolled pain secondary to a distal ureteral calculus on the right side. She now presents for surgical intervention. Informed consent has been obtained. The patient was taken to the operating room and placed on the operating room table in a supine position. Anesthesia monitored the head, neck, airway, IV access and vital signs throughout the case. Once anesthesia was appropriately administered, the patient was placed into dorsal lithotomy position was prepped and draped in usual sterile fashion. The cystoscope was inserted through the urethra under direct visualization. Cystoscopy revealed no evidence of bladder mucosal abnormalities, or foreign body. The right ureteral orifice was intubated with an 0.035 Glidewire. The semirigid ureteroscope was then placed into the distal right ureter and advanced until the stone was identified. At the area of the stone, the ureter was very edematous and narrow. A second Glidewire, 0.025 Ukrainian in size was used through the ureteroscope to assist in advancement and there was no injury to the ureter. The stone was broken into several pieces using the holmium laser. The pieces were basket retrieved and sent for analysis. The safety wire was then used for insertion of a 6 Ukrainian x 24 cm JJ stent with good positioning in the renal pelvis as well as the urinary bladder. The patient's bladder was then emptied and the case was terminated. There were no complications during this procedure. Grafts/Implants Used: 6 Ukrainian x 24 cm JJ stent Complications None Admit VTE Documentation VTE Present on Admission: Yes VTE Mechan Device Prophylaxis: SCD's VTE Pharm Prophylaxis ordered?: No Reason prophylaxis not ordered:: Treatment Not Indicated
--- NOTE | 2022-08-22 16:25 | DCINST_ITS ---
Discharge Instructions Diet Discharge Diet: No restrictions Activity Discharge Activity: Return to Normal Activity May resume sexual activity in: No Restrictions Dressing / Incision Call your doctor if you observe: Fever of 101 or Higher, Inability to urinate and Inability to have a bowel movement Follow Up Care Please Follow Up With: Sujata Harvey MD When: call the office for appt Test Results: Test results from this visit will be discussed in further detail at your follow- up appointment, if applicable. Discharge Plan Admission Admit Date/Time: 08/21/22 11:12 Attending Provider: Sujata Harvey Primary Care Provider: Gail Weller NP Discharge Orders/Prescriptions Prescriptions: New ondansetron HCl [ondansetron HCl] 8 mg tablet 8 mg PO Q8H PRN PRN (Reason: Nausea) 7 Days Qty: 20 0RF phenazopyridine [Pyridium] 200 mg tablet 200 mg PO TID PRN PRN (Reason: Bladder Spasms) 7 Days Qty: 30 0RF acetaminophen-codeine [acetaminophen-codeine] 300-30 mg tablet 1 - 2 tab PO Q6H PRN PRN (Reason: Pain Score 6-10/10) 3 Days Qty: 10 0RF cephalexin [cephalexin] 500 mg capsule 500 mg PO 3XD 3 Days Qty: 9 0RF Continued acetaminophen 325 mg tablet 325 mg PO ONCE PRN (Reason: Pain, Mild) meloxicam 15 mg tablet 15 mg PO QHS atorvastatin 20 mg tablet 40 mg PO QHS Referrals / Follow Up: Gail Weller NP, [facility] [Primary Care Provider] - Disposition Disposition (needs filled in before D/C Order can be placed): Home, Self Care
--- NOTE | 2022-08-22 17:00 | CALC_PTH ---
PATIENT: ABBI NORRIS LOC: [facility] U#:[id number] AGE/SX: 51/F ROOM: [facility] RE08/21/[address]: Dr. Sujata Harvey MD : 1970 BED: 1 DIS: 08/22/2022 SPEC #: [id number] RECD: 08/22/22 17:33 STATUS: LFOR RUVALCABA #: [id number] SMITHA: 08/22/22 17:[address]: Sujata Harvey DEPT: SURGICAL PATHOLOGY RECD BY: Tim Davis ENTERED: 08/23/22 08:23 SP TYPE: Calculi OTHR DR: Gail Weller, PRODUCTION WEIGHERRoxy Tissues: CALCULI Procedures: Surgery Specimen Level I HEADER OPERATION: Cysto, ureteroscopy, retro, laser, stent PRE-OP DIAGNOSIS: Right ureteral calculi with obstruction TISSUE SUBMITTED: Right ureteral calculi fragments for analysis GROSS DIAGNOSIS Right ureteral calculi fragments, removal: Fragments of unremarkable calculi (gross diagnosis only). AM:gold 08/24/2022 COMMENT The calculus is submitted in its entirety for chemical stone analysis. The results from this study will be reported separately. GROSS DESCRIPTION Received without fixative labeled with the patient's name and designated right ureteral calculi. The specimen consists of two irregular fragments of dark collins calculi measuring in aggregate 0.3 x 0.1 x 0.1 cm. The entire specimen is submitted for stone analysis. / AM:gold 08/23/2022 CPT: 80816
[2022-08-31 15:36] LABS: Source RIGHT URETER
== END 2022-08-22 20:15 | disposition home or self-care (01) ==
LOC: ED 10:24 → MS3 13:39
PROVIDERS: Admitting Provider Urology; Emergency Provider Emergency Medicine; PCP Nurse Practitioner Family; Visit Provider Urology
PROC: 0TJ98ZZ Inspection of Ureter, Via Natural or Artificial Opening Endoscopic (ICD-10-PCS; CPT 52352; principal; 2022-08-22 16:50)
DX: N13.2 Hydronephrosis with renal and ureteral calculous obstruction (principal); Z79.899 Other long term (current) drug therapy; M19.90 Unspecified osteoarthritis, unspecified site; R06.02 Shortness of breath
CPT/HCPCS: 52356; 00918; C2617; 74176; 76000; 80048; 81001; 82360; 85025; 87086; 87088; 88300; 96361; 96365; 96366; 96367; 96375; 96376; 99221; 99284; J7030; J7120; A4216; G0378; J2405; J3490

== ENCOUNTER 2023-01-29 05:10 | Day surgery (SDC) | payer MEDICAID, SELFPAY ==
--- NOTE | 2023-01-19 08:23 | EKG12_ITS ---
Test Reason : PRE OP Blood Pressure : / mmHG Vent. Rate : 066 BPM Atrial Rate : 066 BPM P-R Int : 140 ms QRS Dur : 078 ms QT Int : 412 ms P-R-T Axes : 072 065 066 degrees QTc Int : 431 ms Normal sinus rhythm with sinus arrhythmia Normal ECG When compared with ECG of 28-DEC-2021 09:25, No significant change was found Confirmed by REYNOLD SCOTT, MILA ([id number]), film editor supervisor CLIFF GERARDO ([id number]) on 01/24/2023 10:04:57 AM Referred By: Diaz Chang Confirmed By:MILA FLAHERTY MD
[2023-01-19 09:05] LABS: Hematocrit 44.3 % (37-47); Hemoglobin 14.2 g/dL (12.0-15.0); Mean Corp Hgb Conc 32.1 g/dL (32-36); Mean Corpuscular Hgb 29.8 pg (27.0-32.0); Mean Corpuscular Volume 93.1 fL (81-99); Platelet Count 258 K/mm3 (150-450); RBC Distribution Width CV 12.9 % (11.6-14.6); RBC Distribution Width SD 44.2 fl (35.1-43.9); Red Blood Count 4.76 M/mm3 (4.2-5.4); White Blood Count 6.9 K/mm3 (4.4-11.0)
[2023-01-19 09:36] LABS: Anion Gap 4 (5-15); BUN 20 mg/dL (7-18); BUN/Creat Ratio 24.6 RATIO (10-20); Calcium,Total 9.2 mg/dL (8.5-10.1); Chloride 109 mmol/L (98-107); Creatinine, Serum 0.81 mg/dL (0.55-1.02); EST Glomerular Filtration Rate 79 mL/min (>60); Est Glom Filt Rate - Afr Amer 96 mL/min (>60); Glucose 91 mg/dL (74-106); Sodium Level 141 mmol/L (136-145)
[2023-01-29] VITALS (9 sets, daily range): BP systolic 82–121; BP diastolic 50–76; PULSE 64–93; RESP 12–18; TEMP 36.1–36.7; O2SAT 88–100; BMI 26.7
[2023-01-29] MEDS: Lactated Ringers 1,000 ML 15 ML IV (06:10)
[2023-01-29] MEDS: Cefazolin 2 GM in 0.9% Normal Saline (100mL Bag) 100 ML IV (07:35)
[2023-01-29] MEDS: Epinephrine (1 mg/ml) 1 MG/ML VIAL (08:09)
[2023-01-29] MEDS: Bupivacaine Mpf 0.5% 30 ML VIAL (08:20)
--- NOTE | 2023-01-29 08:28 | OP.PCM_ITS ---
Report of Operation Date of Procedure: 01/29/23 Pre-Operative Diagnosis: SAIS. AC arthritis, possible rotator cuff tear left sh oulder Post-Operative Diagnosis: Same with no RCT Surgery/Procedure Performed:: ASD, Van procedure left shoulder Description of Surgical Findings:: Report of Operation Date of Procedure: 01/29/23 Preoperative Diagnosis: Left shoulder, SAIS, AC arthritis with possible ro tator cuff tear Postoperative Diagnosis: Left Shoulder, same with no RCT Operation: Diagnostic and operative arthroscopy of the left shoulder with arthroscopic subacromial decompression and Van procedure Surgeon: Dr Diaz Chang DO Machine Feller: Prince Mendosa PA-C Anesthesia: General Anesthesiologist: Braulio Og M.D. Description of Procedure: With appropriate informed consent, the patient was taken to the operative suite. After induction of general and regional anesthesia and administration of preoperative antibiotics, the patient was placed in a beach-chair position with all bony prominences well padded. SCD's were on the legs. The left arm and shoulder were prepared and draped sterilely. Thereafter, the standard arthroscopy portals were established. The glenohumeral joint was in good condition without evidence of damage or arthrosis. An anterior portal was established. The rotator cuff was pristine when viewed from inside the joint. The biceps tendon was in excellent condition. There was no labral instability. The arthroscopy instruments were then removed from the joint and placed into the subacromial space. A lateral portal was established. There was severe hypertrophic subacromial bursitis. A complete subacromial bursectomy was carried out. This revealed a large anterior inferior subacromial spur and significant AC joint arthrosis. A bur was utilized to perform an anterior inferior acromionectomy to flatten the undersurface of the acromion and decompress the subacromial space. The bur was then utilized to resect the distal 9mm of the clavicle in the manner of Van. The rotator cuff was viewed from the bursal surface and found to be intact. Arthroscopy instruments and fluids were removed. The portals were closed with interrupted sutures of 4-0 nylon followed by application of a sterile well- padded dressing and UltraSling. My library clerical assistant, Mr Mendosa, provided a vital role in the performance of this procedure beginning with positioning of the patient, maneuvering the arm, holding the arthroscope during various portions of the diagnostic and operative arthroscopy. Then, under my direct supervision, he closed the wounds and applied the sterile post-operative dressing. The patient was extubated and transferred to the PACU in stable and satisfactory condition. Diaz Chang DO Surgeon: Diaz Chang centrifugal separator: Prince Mendosa Type of Anesthesia: General Anesthesiologist: Braulio Crane Admmurtaza VTE Documentation VTE Present on Admission: No VTE Mechan Device Prophylaxis: SCD's and Thigh High BARRY Hose VTE Pharm Prophylaxis ordered?: No Reason prophylaxis not ordered:: Treatment Not Indicated
[2023-01-29] MEDS: 0.9% Normal Saline (1000mL) 1,000 ML 125 ML IV (09:05)
--- NOTE | 2023-01-29 09:06 | SUR.PHASEI ---
PATIENT REQUESTED NO NARCOTICS POST OP AND ALSO DENIED HER BLOCK. IN PACU SHE BECAME VERY PAINFUL. I ASKED HER IF SHE STILL DENIES NARCOTICS AND SHE SAID SHE WOULD LIKE SOMETHING NOT SOMETHING THAT WILL KNOCK ME OUT . SHE HAD DILAUDID AND FENTANYL IN OR SO I CHOSE DILAUDID. SHE ALSO REQUESTED ZOFRAN SO THAT WAS GIVEN ALSO.
[2023-01-29] MEDS: Mag Hydrox/Al Hydrox/Simeth 30 ML UDC PO (09:25)
[2023-01-29] MEDS: Ondansetron 4 MG/2 ML Vial IV (12:28)
== END 2023-01-29 12:45 | disposition home or self-care (01) ==
LOC: SDC 05:11 → AC 05:12
PROVIDERS: PCP Nurse Practitioner Family; Referring Provider Orthopaedic Surgery; Visit Provider Orthopaedic Surgery
PROC: (CPT 29827; principal; 2023-01-29 07:10)
DX: M75.42 Impingement syndrome of left shoulder (principal); S46.012A Strain of muscle(s) and tendon(s) of the rotator cuff of left shoulder, initial encounter; M19.012 Primary osteoarthritis, left shoulder; E66.3 Overweight; M75.52 Bursitis of left shoulder; F41.9 Anxiety disorder, unspecified; K21.9 Gastro-esophageal reflux disease without esophagitis; E78.00 Pure hypercholesterolemia, unspecified; Z86.16 Personal history of COVID-19; Z79.899 Other long term (current) drug therapy; Z68.26 Body mass index [BMI] 26.0-26.9, adult; X58.XXXA Exposure to other specified factors, initial encounter
CPT/HCPCS: 29824; 29826; 36415; 80048; 85027; 93005; J7030; J7120; J2405

== ENCOUNTER → 2023-05-01 | Outpatient (CLI) | payer MEDICAID, SELFPAY ==
--- NOTE | 2023-05-01 08:35 | CT_ITS ---
INDICATION: CHRONIC PANSINUSITIS EXAMINATION: CT SINUSES - CT Sinuses W/O Contrast Injection TECHNIQUE: Helically acquired images were obtained of the paranasal sinuses. A radiation dose optimization technique was used for this scan. IV Contrast dosage and agent: None RADIATION DOSAGE (If Supplied By Facility): CTDIvol = ( 33.06 ) mGy, DLP = ( 862.77 ) mGycm COMPARISON: No relevant prior comparison study available FINDINGS: FRONTAL SINUSES AND RECESSES: Clear. ETHMOID AIR CELLS: Mucosal thickening of the ethmoid sinuses. MAXILLARY SINUSES: Mild mucosal thickening of the right maxillary sinus. The left maxillary sinus is clear. OSTIOMEATAL COMPLEXES: Clear and normally formed. SPHENOID SINUSES: Clear. SPHENOETHMOIDAL RECESSES: Clear. ANCILLARY FINDINGS: NASAL TURBINATES: Unremarkable. NASAL SEPTUM: Minimal deviation of the nasal septum to the left side ORBITS: Unremarkable. VISUALIZED DENTITION: No periodontal osseous erosion. ANTERIOR CRANIAL FOSSA: Unremarkable. CT/Sinus/Facial Bone IMPRESSION: Mild sinus disease as described above. Electronically Signed: Kee Bennett MD at 14:43 EST ,
== END | disposition home or self-care (01) ==
LOC: CT 08:24
PROVIDERS: PCP Nurse Practitioner Family; Visit Provider Nurse Practitioner Family
DX: J32.4 Chronic pansinusitis (principal); Z91.09 Other allergy status, other than to drugs and biological substances
CPT/HCPCS: 70486

== ENCOUNTER → 2023-11-07 | Outpatient (CLI) | payer MEDICAID, SELFPAY ==
[2023-11-09 14:08] LABS: H.Pylori Breath Test Negative (Negative)
== END | disposition home or self-care (01) ==
PROVIDERS: PCP Nurse Practitioner Family; Referring Provider Nurse Practitioner Family; Visit Provider Nurse Practitioner Family
DX: K29.00 Acute gastritis without bleeding (principal)
CPT/HCPCS: 83013